=== PATIENT | female | born 1970 | race Caucasian/White ===

== ENCOUNTER 2022-06-10 11:57 | Day surgery (SDC) | payer OTHER, SELFPAY ==
[2022-06-10] VITALS (22 sets, daily range): BP systolic 105–182; BP diastolic 56–99; PULSE 49–81; RESP 12–18; TEMP 35.9–36.8; O2SAT 96–100; BMI 27.4
[2022-06-10 12:15] LABS: Ur HCG Qualitative* Negative (Negative)
[2022-06-10] MEDS: SODIUM CHLORIDE 0.9 % (FLUSH) 10 ML SYRINGE IVF (12:30)
[2022-06-10] MEDS: LACTATED RINGERS 1000 ML 1,000 ML 100 ML IV ×2 (12:30→14:23)
[2022-06-10 12:35] LABS: Hemoglobin* 10.8 gm/dL (12.0-16.0)
--- NOTE | 2022-06-10 12:41 | W.ANESCHARGE ---
Anesthesia Charges Start Date/Time Anesthesia Start Date: 06/10/22 Anesthesia Start Time: 12:41 Stop Date/Time Anesthesia Stop Date: 06/10/22 Anesthesia Stop Time: 16:17
[2022-06-10 13:03] LABS: Creatinine* 0.5 mg/dL (0.5-1.5); Est. Creatinine Clearance* 117.09; Estimated Glomerular Filt Rate 112 ml/min
[2022-06-10] MEDS: CEFAZOLIN 2 GM INJ IVP (13:08)
[2022-06-10] MEDS: VASOPRESSIN 20 UNIT/ML INJ INJECTION (13:31)
--- NOTE | 2022-06-10 15:04 | SUR.OPER ---
uterus weight 265grams Dr. Shelly Cordoba aware
--- NOTE | 2022-06-10 15:09 | SUR.OPER ---
called pts Cristobal and let him know things are going great and about 1 hour left
[2022-06-10] MEDS: ESTROGENS, CONJUGATED VAGINAL 0.625 MG/G CREAM 1 APPLIC TOPICAL (15:46)
--- NOTE | 2022-06-10 16:13 | W.PM.GYNPROC ---
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 Speculum exam: Vagina well epithelized and supported. Cervix: Multiparous, large no abnormal masses of discharge. Uterus of about 12cm, irregular in contour due to fibroids, bilateral fallopian tubes normal, left ovary of about 4cm with a cystic structure filled with clear fluid, looked to have other smaller cysts. Right ovary grossly normal. Cystoscopy: No foreign objects, bilateral ureteral jet streams seen. The patient was seen at the preop area. Risks, benefits, indication, and alternatives of the procedure were reviewed with patient. Informed consent was reviewed and signed. The patient was taken to the OR with IV fluid running and pneumatic compression stockings were applied to the lower extremities. General anesthesia was obtained without difficulty. The patient was placed in the dorsal lithotomy position with Henrique type stirrups. Buttock was positioned slightly over the edge the table. The patient was prepped and draped in normal sterile fashion. Examination under anesthesia revealed the findings as above. Lehman catheter was inserted and the bladder was emptied. A weighted speculum was placed into the vagina. The anterior and posterior lip of the cervix grasped with with Yolanda clamps. With outward traction applied on the tenaculum diluted Vasopressin was injected circumferentially into the cervicovaginal junction for hydrodissection purposes. Afterwards a circumferential incision was made with the scalpel at the cervical vaginal junction. Incision was carried down to the para cervical fascia, allowing the cervix to separate from the vagina mucosa. Minimal bleeding encountered. Separation of the anterior vaginal mucosa from uterus performed bluntly with moist gauze and performed until peritoneal reflection identified, this was picked up and entered sharply with Villeda scissors. A right angle retractor was inserted into the vesicouterine space. Attention was then placed to the posterior vagina, where blunt dissection also utilized until identification of the posterior peritoneum, this was grasped with pickups and entered sharply with Villeda scissors with the tip pointing to the uterus. Clear peritoneal fluid was noted. The weighted speculum was removed in a long Maribel speculum was inserted into the cul-de-sac. The uterosacral ligaments were clamped with Antonio clamps, cut, and suture ligated. Follow-up were the cardinal ligaments. Significant uterine descent was noted, the uterine vessels were identified, clamped, cut and suture ligated. The broad and round ligaments were then clamped, cut, and suture ligated. Finally the utero ovarian ligaments of the left side was clamped, cut and doubly tied. The fundus was then grasped with a tenaculum and morcellation of the left uterine body and fundus allowed extraction of the left side of the uterus to identify the right utero-ovarian ligament and this was then clamped, cut and doubly tied. The uterus was removed through the vagina.The left fallopian tube was grasped with Galen, utilizing LigaSure Impact device it was clamped, coagulated and cut. Luiz procedure performed on the right side. Hemostasis secured. Left ovary was then grasped with Clayton and cystic structure was accidentally ruptured and showed a clear fluid as discharge. Decision was made that in patients best interest the left ovary was amenable to removal. The right ovary looked entirely normal. The left infundibulopelvic ligament was then completely isolated, clamped, coagulated and cut utilizing LigaSure Impact device. Hemostasis secured. Examination of all of the pedicles revealed good hemostasis. There was some bleeding identified from the vaginal edges at 3 and 9 o'clock, these areas were suture ligated with Vicryl 0 in a continues interlocking fashion. Afterwards the vaginal angles were sutured to the uterosacral ligaments. The vaginal cuff including the posterior peritoneum was closed in a continuos vertical fashion utilizing Vicryl 0. Fluorescein had been given IV to patient. Cystoscopy performed with normal findings. Vaginal packing with estrogen cream in place and to be removed tomorrow morning. All instruments were removed from the vagina, and all counts were correct x2. The patient was taken to the recovery room in a stable condition. She did receive 2g of Ancef at the start of procedure. Uterine weight: 265g.
--- NOTE | 2022-06-10 16:30 | W.ANESCHARGE ---
Anesthesia Charges Start Date/Time Anesthesia Start Date: 06/10/22 Anesthesia Start Time: 12:41 Stop Date/Time Anesthesia Stop Date: 06/10/22 Anesthesia Stop Time: 16:17
[2022-06-10] MEDS: fentaNYL 100 MCG/2 ML inj 50 MCG IVP ×2 (16:35→16:42)
[2022-06-10] MEDS: LACTATED RINGERS 1000 ML 1,000 ML 125 ML IV (16:45)
[2022-06-10] MEDS: ONDANSETRON 2 MG/ML inj 4 MG IVP (17:26)
[2022-06-10] MEDS: ACETAMINOPHEN 325 MG TABLET 650 MG PO ×2 (17:42→22:46)
[2022-06-10] MEDS: OXYCODONE 5 MG TABLET PO (17:42)
[2022-06-10] MEDS: METOCLOPRAMIDE HCL 5 MG/ML INJ 10 MG IVP (18:28)
[2022-06-10] MEDS: HYDROmorphone 0.5 mg/0.5 ml inj IVP (19:04)
--- NOTE | 2022-06-10 19:54 | PC.NURSE ---
Nursing Care Hours: [id number] Pt this shift arrived from PACU, awake and drowsy. C/o nausea which pt has history of emesis post anaesthesia or pain meds per pt. 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 Followed by 2 more episodes despite giving second antiemetic. Rates pain 3-4/10, as cramping pains. No signs of bleeding vaginally. Lehman patent. VSS. Taking in ice chips and small sips of fluids. IV left running until pt can take fluids without emesis. Pt gave self correction dose of 1.7 units for BS 195 using pt insulin pump.
[2022-06-10] MEDS: PROPRANOLOL 20 MG TABLET PO (21:41)
[2022-06-10] MEDS: KETOROLAC 30 MG/ML inj IVP (21:42)
[2022-06-10] MEDS: LORazepam 2 MG/ML inj 1 MG IVP (22:35)
[2022-06-11] MEDS: LACTATED RINGERS 1000 ML 1,000 ML 100 ML IV ×2 (00:33→08:57)
[2022-06-11] MEDS: ACETAMINOPHEN 325 MG TABLET 650 MG PO (02:37)
[2022-06-11 02:45] VITALS: BP 126/58; PULSE 70; RESP 18; TEMP 36.8; O2SAT 96
[2022-06-11] MEDS: KETOROLAC 30 MG/ML inj IVP ×2 (03:44→10:13)
[2022-06-11] MEDS: LEVOTHYROXINE 100 MCG TABLET PO (06:12)
--- NOTE | 2022-06-11 06:49 | PC.NURSE ---
23-: pleasant and cooperative. c/o pain as ?discomfort? 2-06/04, prn Tylenol given. Pt states she would like to manage her pain w/o narcotics d/t nausea. Advancing diet slowly, tolerating sips of fluids. VSS. No vaginal bleeding. Lehman patent and draining.
[2022-06-11 07:04] LABS: Hemoglobin* 10.2 gm/dL (12.0-16.0)
[2022-06-11 07:22] LABS: Creatinine* 0.5 mg/dL (0.5-1.5); Est. Creatinine Clearance* 117.09; Estimated Glomerular Filt Rate 112 ml/min
[2022-06-11 07:35] VITALS: BP 114/48; PULSE 60; RESP 16; TEMP 36.8; O2SAT 96
--- NOTE | 2022-06-11 08:15 | P.GYNPN_ITS ---
HUMAN SERVICES CARE SPECIALIST - A/P Postoperative Procedures: Procedures Operation Date: 06/10/22 11:50 Actual Procedure Side Surgeon p Total Vaginal Hysterectomy, bilateral Salpingectomy, Cystoscopy LEFT OOPHERECTOMY Salina Maya MD Postoperative day: 1 Postoperative status: doing well Postoperative plan: routine post-op care, ambulate, advance diet, voiding trials and other (Will remove salas catheter, encouraged to ambulate, will continue to advance diet and if doing well plan is to discharge later today.) Time Spent With Patient Time: Total time spent is greater than 50% in coordination of care (as documented) at patient's floor/unit and/or counseling patient: Time with patient: less than 15 minutes HUMAN SERVICES CARE SPECIALIST- PN:Subj Post-Op Subjective Time Seen by Provider: 08:16 Date Seen: 06/11/22 Post Operative Details: Post-operative day number 1: status post total vaginal hysterectomy, bilateral salpingectomy, left oophorectomy Subjective: patient reports feeling better, pain is well controlled and other (Feels much better than last night, states that she always experiences significnat nausea after anesthesia, pain meds so she would like to avoid those. Otherwise pain right now is minimal cramping.) HUMAN SERVICES CARE SPECIALIST-PN: Obj Exam Physical Exam: Vital signs: Temp Pulse Resp BP Pulse Ox O2 Del Method 98.2 F 70 18 126/58 L 96 06/11/22 02:45 06/11/22 02:45 06/11/22 02:45 06/11/22 02:45 06/11/22 02:45 06/11/22 02:45 Narrative: VITAL SIGNS: As noted above. GENERAL APPEARANCE: Alert, cooperative female in no acute distress. MOOD & AFFECT: Normal. ABDOMEN: Soft, non-distended and nontender. Very soft bowel sounds present. : Normal external female anatomy. Bartholin's and Pitcairn's glands are normal. Vaginal packing removed, not soaked. EXTREMITIES: Nonedematous. Well perfused. Nontender. Urinary Catheter Management: Urethral: Cath placed during this visit: yes Urethral indwelling: Yes Reason for continuing: surgical procedure Insertion date: 06/10/22 HUMAN SERVICES CARE SPECIALIST - PN: Obj Data Labs Labs: Laboratory Results - last 24 hr 06/10/22 06/10/22 06/10/22 12:00 12:23 12:23 Hgb 10.8 L Creatinine 0.5 Estimated Creat Clear 117.09 Estimated GFR 112 Urine HCG, Qual Negative Blood Type Antibody Screen 06/10/22 06/11/22 06/11/22 12:23 06:00 06:00 Hgb 10.2 L Creatinine 0.5 Estimated Creat Clear 117.09 Estimated GFR 112 Urine HCG, Qual Blood Type B Positive Antibody Screen NEGATIVE
[2022-06-11] MEDS: INSULIN PUMP (PT OWN) SUBCUT (08:48)
[2022-06-11] MEDS: PANTOPRAZOLE SODIUM 40 MG INJ IVP (08:48)
[2022-06-11] MEDS: lisinopriL 10 MG TABLET PO (08:48)
[2022-06-11] MEDS: PROPRANOLOL 20 MG TABLET PO (08:48)
[2022-06-11 11:04] VITALS: BP 111/70; PULSE 57; RESP 16; TEMP 36.6; O2SAT 96
--- NOTE | 2022-06-11 14:05 | P.DS_ITS ---
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 Indication for surgery: Abnormal uterine bleeding-myomatous uterus. Intraoperative findings were notable for large fibroid uterus, grossly normal bilateral fallopian tubes, enlarged left ovary with cyst. She had an uncomplicated surgery. Postoperative course has been uneventful. Vitals have been stable. She has remained afebrile. Today, on postoperative day 1, she reports the pain is well controlled. She has been able to ambulate Without difficulty. She is tolerating regular diet. She is passing flatus. Lehman catheter has been removed, and she is voiding without difficulty. Time Spent with Patient Time attestation: Total time spent providing and/or coordinating discharge services: Time spent: Less than 30 minutes CASING RUNNING MACHINE TENDER - Exam Physical Exam: Vital signs: Temp Pulse Resp BP Pulse Ox O2 Del Method 97.9 F 57 L 16 111/70 96 06/11/22 11:04 06/11/22 11:04 06/11/22 11:04 06/11/22 11:04 06/11/22 11:04 06/11/22 11:04 Narrative: VITAL SIGNS: As noted above. GENERAL APPEARANCE: Alert, cooperative female in no acute distress. MOOD & AFFECT: Normal. ABDOMEN: Soft, non-distended and nontender. : No abnormal discharge EXTREMITIES: Nonedematous. Well perfused. Nontender. CASING RUNNING MACHINE TENDER - DS: Data Data Completed and Pending Labs on day of discharge: Labs from last 24 hours 06/11/22 06/11/22 06:00 06:00 Hgb 10.2 L Creatinine 0.5 Estimated Creat Clear 117.09 Estimated GFR 112 Procedures Procedures: Procedures Operation Date: 06/10/22 11:50 Actual Procedure Side Surgeon p Total Vaginal Hysterectomy, bilateral Salpingectomy, Cystoscopy LEFT OOPHERECTOMY Salina Maya MD Complications: none Discharge Plan Discharge Disposition: Home, Self-Care Discharging Surgeon: Salina Maya Follow-Up Appointment: 2 weeks [facility] Prescriptions: New ibuprofen 600 mg Tablet 600 mg PO Q6H Qty: 30 0RF Continued lisinopril 10 mg tablet 10 mg PO DAILY aspirin 81 mg tablet,chewable 81 mg PO DAILY propranolol 40 mg tablet 20 mg PO BID cholecalciferol (vitamin D3) 50 mcg (2,000 unit) capsule DAILY ferrous sulfate 325 mg (65 mg iron) tablet,delayed release (DR/EC) 325 mg PO DAILY levothyroxine 100 mcg tablet insulin lispro 100 unit/mL insulin pen SUBCUT No Action levothyroxine 100 mcg capsule 100 mcg PO QDAY Activity Level: Activity as Tolerated and No Weight Bearing Activity Detail: No heavy lifting more than 15-20 pounds for 6 weeks, nothing vaginally for 6 weeks, avoid baths until 2 weeks post op visit, can shower as usual. Discharge Diet: Diabetic Patient Instructions: Vaginal Hysterectomy (DC) Forms: Work/School Release Follow-up: Dyana Harris, [facility] [Primary Care Provider] - Discharge Orders: Discharge Order (Routine); Ordered 06/11/22 Ordered By: Salina Maya
--- NOTE | 2022-06-11 14:08 | PC.NURSE ---
Pt has been pleasant and cooperative during shift. Pt has had no complaints of pain during shift. Pt?s salas catheter was removed at 0855 am tip intact. Pt voided about an hour after having catheter removed. 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 Pt to be discharged home with this afternoon.
[2022-06-11 14:38] VITALS: BP 121/62; PULSE 56; RESP 16; TEMP 36.6
[2022-06-11 15:33] VITALS: BP 121/62; PULSE 56; RESP 16; TEMP 36.6
--- NOTE | 2022-06-15 13:45 | SUR.OPER ---
Verified anesthesia end time with Gretchen LÓPEZ and updated accordingly.
== END 2022-06-11 15:15 | disposition home or self-care (01) ==
LOC: OR 11:57 → MEDSURG 12:00
PROVIDERS: PCP Physician Assistant Medical; Visit Provider Obstetrics & Gynecology
PROC: 0TJB8ZZ Inspection of Bladder, Via Natural or Artificial Opening Endoscopic (ICD-10-PCS; CPT 57260; principal; 2022-06-10 11:30)
DX: N93.8 Other specified abnormal uterine and vaginal bleeding (principal); D25.9 Leiomyoma of uterus, unspecified; N83.292 Other ovarian cyst, left side
CPT/HCPCS: 58291; 00944; 36415; 81025; 82565; 82962; 85018; 86850; 86900; 86901; 88307; A9270; C9113; J0690; J1170; J1885; J2060; J2250; J2274; J2405; J2704; J2765; J3010; J3490; J7120

== ENCOUNTER 2022-06-24 13:22 | Outpatient (CLI) | payer OTHER, SELFPAY | END 2022-06-24 13:23 | disposition home or self-care (01) | LOC: NFLDREF 13:23 | PROVIDERS: PCP Physician Assistant Medical; Visit Provider Obstetrics & Gynecology | DX: Z01.818 Encounter for other preprocedural examination (principal); R30.0 Dysuria; N76.0 Acute vaginitis | CPT/HCPCS: 87086 ==